=== PATIENT | male | born 1965 | race Two or more races ===

== ENCOUNTER → 2016-12-02 | Outpatient (CLI) | payer BC ==
[~2016-12-02] MED LIST: LISIPOW; METF-372 OR; SIMV-8 OR
[2016-12-02 08:13] LABS: Basophils # (auto) 0 uL; Basophils % (auto) 0.8 % (0.0-2.0); CONDITION AutoValidated; Eosinophils # (auto) 0.1 uL; Eosinophils % (auto) 2.8 % (0.0-7.0); Hematocrit 43.5 % (41.0-53.0); Hemoglobin 14.6 g/dL (13.5-17.5); Lymphocytes # (auto) 1.2 uL; Lymphocytes % (auto) 21.4 % (10.0-50.0); Mean Corpuscular Hemoglobin 30.9 pg (28.0-32.0); Mean Corpuscular Hgb Conc. 33.6 g/dL (32.0-36.0); Mean Platelet Volume 8.4 fL (7.4-10.4); Monocytes # (auto) 0.4 uL; Monocytes % (auto) 7.4 % (0.0-12.0); Neutrophils # (auto) 3.6 uL; Neutrophils % (auto) 67.6 % (37.0-80.0); Platelet Count (auto) 263 10^3/uL (140-450); Red Cell Distribution Width 13.9 % (11.6-16.0); White Blood Cell 5.4 10^3/uL (4.4-10.8)
[2016-12-02 08:21] LABS: Urine Bilirubin Negative (Negative); Urine Blood Negative /uL (Negative); Urine Color Yellow (Yellow); Urine Ketone Negative (Negative); Urine Nitrite Negative (Negative); Urine RBC <1 /hpf (0 - 3); Urine Squamous Epithelial Cell FEW /hpf (<5); Urine Urobilinogen Normal (Negative)
[2016-12-02 08:22] LABS: Urine Glucose 4+ mg/dL (Normal)
[2016-12-02 08:39] LABS: BUN/Creatinine Ratio 27.2; Bilirubin, Total 0.4 mg/dL (0.2-1.0); Potassium 4.1 mmol/L (3.5-5.1); Total Protein 7.1 g/dL (6.4-8.2)
== END | disposition home or self-care (01) ==
LOC: LAB 07:33
PROVIDERS: ATTEND Internal Medicine
DX: Z00.00 Encounter for general adult medical examination without abnormal findings (principal); I10 Essential (primary) hypertension; E11.22 Type 2 diabetes mellitus with diabetic chronic kidney disease
CPT/HCPCS: 36415; 80053; 80061; 81001; 82043; 83036; 85025

== ENCOUNTER → 2017-09-06 | Outpatient (CLI) | payer BC ==
[2017-09-06 08:28] LABS: Basophils # (auto) 0 uL; Basophils % (auto) 0.5 % (0.0-2.0); Eosinophils # (auto) 0.1 uL; Eosinophils % (auto) 1.8 % (0.0-7.0); Hematocrit 43.9 % (41.0-53.0); Hemoglobin 14.7 g/dL (13.5-17.5); Lymphocytes # (auto) 1.4 uL; Lymphocytes % (auto) 25.9 % (10.0-50.0); Mean Corpuscular Hemoglobin 31.5 pg (28.0-32.0); Mean Corpuscular Hgb Conc. 33.5 g/dL (32.0-36.0); Mean Corpuscular Volume 94.2 fL (80.0-100.0); Monocytes # (auto) 0.4 uL; Monocytes % (auto) 8.5 % (0.0-12.0); Neutrophils # (auto) 3.3 uL; Neutrophils % (auto) 63.3 % (37.0-80.0); Nucleated Red Blood Cells % 0.1 %; Platelet Count (auto) 215 10^3/uL (140-450); Red Blood Cells 4.66 10^6/uL (4.5-5.90); Red Cell Distribution Width 13.3 % (11.8-14.3); White Blood Cell 5.2 10^3/uL (4.4-10.8)
[2017-09-06 11:22] LABS: Prostate Specific Antigen 0.7 ng/mL (0.0-4.0)
[2017-09-06 12:46] LABS: Albumin 3.9 g/dL (3.4-5.0); BUN/Creatinine Ratio 30.1; Bilirubin, Total 0.4 mg/dL (0.2-1.0); Potassium 4.2 mmol/L (3.5-5.1); Total Protein 7.4 g/dL (6.4-8.2)
== END | disposition home or self-care (01) ==
LOC: LAB 07:16
PROVIDERS: ATTEND Internal Medicine
DX: E11.9 Type 2 diabetes mellitus without complications (principal); N40.0 Benign prostatic hyperplasia without lower urinary tract symptoms
CPT/HCPCS: 36415; 80053; 80061; 82607; 83036; 84153; 85025

== ENCOUNTER → 2018-08-23 | Outpatient (CLI) | payer BC ==
[2018-08-23 07:41] LABS: Basophils # (auto) 0 uL; Basophils % (auto) 0.7 % (0.0-2.0); Eosinophils # (auto) 0.1 uL; Eosinophils % (auto) 2.4 % (0.0-7.0); Hematocrit 43.7 % (41.0-53.0); Hemoglobin 14.5 g/dL (13.5-17.5); Lymphocytes # (auto) 1.3 uL; Lymphocytes % (auto) 26.2 % (10.0-50.0); Mean Corpuscular Hemoglobin 31.3 pg (28.0-32.0); Mean Corpuscular Hgb Conc. 33.2 g/dL (32.0-36.0); Mean Corpuscular Volume 94.3 fL (80.0-100.0); Monocytes # (auto) 0.5 uL; Monocytes % (auto) 9.6 % (0.0-12.0); Neutrophils # (auto) 3.1 uL; Neutrophils % (auto) 61.1 % (37.0-80.0); Platelet Count (auto) 211 10^3/uL (140-450); Red Blood Cells 4.63 10^6/uL (4.5-5.90); Red Cell Distribution Width 13.4 % (11.8-14.3); White Blood Cell 5.1 10^3/uL (4.4-10.8)
[2018-08-23 08:10] LABS: Albumin 3.7 g/dL (3.4-5.0); BUN/Creatinine Ratio 23.9; Potassium 4.1 mmol/L (3.5-5.1)
[2018-08-23 08:11] LABS: Urine Bacteria NONE SEEN /hpf (None Seen); Urine Blood Negative /uL (Negative); Urine Specific Gravity 1.031 (1.001-1.035); Urine WBC <1 /hpf (0 - 3)
[2018-08-23 08:16] LABS: Bilirubin, Total 0.3 mg/dL (0.2-1.0); Total Protein 7.3 g/dL (6.4-8.2)
[2018-08-23 08:50] LABS: Free T4 (Free Thyroxine) 1.07 ng/dL (0.89-1.76); Prostate Specific Antigen 0.65 ng/mL (0.0-4.0)
== END | disposition home or self-care (01) ==
LOC: LAB 07:26
PROVIDERS: ATTEND Internal Medicine
DX: E11.9 Type 2 diabetes mellitus without complications (principal)
CPT/HCPCS: 36415; 80053; 80061; 81001; 82043; 82607; 83036; 84153; 84439; 84443; 85025; 85652

== ENCOUNTER → 2019-03-21 | Outpatient (CLI) | payer BC | END | disposition home or self-care (01) | LOC: XY 09:20 | PROVIDERS: ATTEND Internal Medicine | DX: E11.9 Type 2 diabetes mellitus without complications (principal); I73.9 Peripheral vascular disease, unspecified | CPT/HCPCS: 93925 ==

== ENCOUNTER → 2019-03-21 | Outpatient (CLI) | payer BC ==
[2019-03-21 11:57] LABS: Potassium 3.9 mmol/L (3.5-5.1)
[2019-03-21 12:03] LABS: Albumin 3.7 g/dL (3.4-5.0); BUN/Creatinine Ratio 23.1; Bilirubin, Total 0.3 mg/dL (0.2-1.0); Calcium 8.5 mg/dL (8.5-10.1); Total Protein 7.2 g/dL (6.4-8.2)
== END | disposition home or self-care (01) ==
LOC: LAB 10:03
PROVIDERS: ATTEND Internal Medicine
DX: E11.9 Type 2 diabetes mellitus without complications (principal); E03.9 Hypothyroidism, unspecified
CPT/HCPCS: 36415; 80053; 82550; 83036; 84439; 84443

== ENCOUNTER → 2019-07-10 | Outpatient (CLI) | payer BC | END | disposition home or self-care (01) | LOC: LAB 05:44 | PROVIDERS: ATTEND Internal Medicine | DX: E11.9 Type 2 diabetes mellitus without complications (principal) | CPT/HCPCS: 36415; 83036 ==

== ENCOUNTER → 2020-10-02 | Outpatient (CLI) | payer BC ==
[2020-10-02 07:58] LABS: Urine Bacteria MOD /hpf (None Seen); Urine Blood Negative /uL (Negative); Urine Hyaline Cast FEW /lpf (0 - 2); Urine Mucus FEW (None Seen); Urine Sperm PRESENT /hpf (None Seen); Urine WBC 1 /hpf (0 - 3)
[2020-10-02 08:01] LABS: Basophils # (auto) 0 10 ^3/uL (0-0.2); Basophils % (auto) 0.3 % (0.0-2.0); Eosinophils # (auto) 0.1 10 ^3/uL (0-0.8); Eosinophils % (auto) 2.2 % (0.0-7.0); Hemoglobin 12.8 g/dL (13.5-17.5); Lymphocytes # (auto) 1.1 10 ^3/uL (0.4-5.4); Lymphocytes % (auto) 26.9 % (10.0-50.0); Mean Corpuscular Hemoglobin 30.2 pg (28.0-32.0); Mean Corpuscular Hgb Conc. 33.8 g/dL (32.0-36.0); Mean Corpuscular Volume 89.5 fL (80.0-100.0); Monocytes # (auto) 0.4 10 ^3/uL (0-1.3); Monocytes % (auto) 8.9 % (0.0-12.0); Neutrophils # (auto) 2.6 10 ^3/uL (1.6-8.6); Neutrophils % (auto) 61.7 % (37.0-80.0); Nucleated Red Blood Cells % 0.1 %; Platelet Count (auto) 224 10^3/uL (140-450); Red Blood Cells 4.25 10^6/uL (4.5-5.90); Red Cell Distribution Width 13.6 % (11.8-14.3); White Blood Cell 4.2 10^3/uL (4.4-10.8)
[2020-10-02 08:23] LABS: Albumin 3.6 g/dL (3.4-5.0); Calcium 8.8 mg/dL (8.5-10.1); Potassium 4.2 mmol/L (3.5-5.1)
[2020-10-02 08:27] LABS: Bilirubin, Total 0.4 mg/dL (0.2-1.0); Total Protein 6.8 g/dL (6.4-8.2)
[2020-10-02 09:42] LABS: Free T4 (Free Thyroxine) 0.84 ng/dL (0.89-1.76); Prostate Specific Antigen 0.85 ng/mL (0.0-4.0)
== END | disposition home or self-care (01) ==
LOC: LAB 07:07
PROVIDERS: ATTEND Internal Medicine
DX: E11.9 Type 2 diabetes mellitus without complications (principal); I10 Essential (primary) hypertension; N40.0 Benign prostatic hyperplasia without lower urinary tract symptoms; R14.3 Flatulence
CPT/HCPCS: 36415; 80053; 80061; 81001; 82043; 82150; 82607; 83036; 83690; 84153; 84439; 84443; 85025; 85652

== ENCOUNTER 2020-11-21 11:12 | Emergency (ER) | payer BC ==
[~2020-11-21] VITALS: Ht 162.6 cm; Wt 65.8 kg
[2020-11-21 11:48] LABS: Basophils # (auto) 0 10 ^3/uL (0-0.2); Basophils % (auto) 0.4 % (0.0-2.0); Eosinophils # (auto) 0.1 10 ^3/uL (0-0.8); Eosinophils % (auto) 0.9 % (0.0-7.0); Hematocrit 40.7 % (41.0-53.0); Hemoglobin 13.6 g/dL (13.5-17.5); Lymphocytes # (auto) 1.2 10 ^3/uL (0.4-5.4); Lymphocytes % (auto) 19.6 % (10.0-50.0); Mean Corpuscular Hemoglobin 30.4 pg (28.0-32.0); Mean Corpuscular Hgb Conc. 33.5 g/dL (32.0-36.0); Mean Corpuscular Volume 90.6 fL (80.0-100.0); Monocytes # (auto) 0.4 10 ^3/uL (0-1.3); Monocytes % (auto) 6.5 % (0.0-12.0); Neutrophils # (auto) 4.5 10 ^3/uL (1.6-8.6); Neutrophils % (auto) 72.6 % (37.0-80.0); Nucleated Red Blood Cells % 0.1 %; Platelet Count (auto) 226 10^3/uL (140-450); Red Blood Cells 4.49 10^6/uL (4.5-5.90); White Blood Cell 6.3 10^3/uL (4.4-10.8)
[2020-11-21 12:07] LABS: Albumin 3.9 g/dL (3.4-5.0); Anion Gap 7 (5-15); Blood Urea Nitrogen 24 mg/dL (7-18); Calcium 8.8 mg/dL (8.5-10.1); Carbon Dioxide 25 mmol/L (21-32); Chloride 104 mmol/L (98-107); Glucose 202 mg/dL (74-106); Potassium 4.2 mmol/L (3.5-5.1); Sodium 136 mmol/L (136-145)
[2020-11-21 12:18] LABS: Alanine Aminotransferase 30 U/L (16-61); Alkaline Phosphatase 89 U/L (45-117); Aspartate Aminotransferase 18 U/L (15-37); BUN/Creatinine Ratio 20.5; Bilirubin, Total 0.6 mg/dL (0.2-1.0); GFR African American 83 mL/min; GFR Non-African American 69 mL/min; Total Protein 7.2 g/dL (6.4-8.2)
[2020-11-21 14:54] LABS: Urine Bacteria NONE SEEN /hpf (None Seen); Urine Blood Negative /uL (Negative); Urine Specific Gravity 1.029 (1.001-1.035); Urine WBC 1 /hpf (0 - 3)
[2020-11-21 16:37] VITALS: BP 127/90
== END 2020-11-21 16:44 | disposition home or self-care (01) ==
LOC: ER 11:12
DX: R10.9 Unspecified abdominal pain (principal); E11.9 Type 2 diabetes mellitus without complications; Z79.899 Other long term (current) drug therapy
CPT/HCPCS: 36415; 74176; 80053; 81001; 84484; 85025; 93005

== ENCOUNTER → 2021-11-23 | Outpatient (CLI) | payer BC ==
[~2021-11-23] MED LIST changes: +ASPI-543 PO; +GLIP5TAB12 PO; +LISI-275 PO; -LISIPOW; +METF-371 PO; -METF-372 OR; +ROSU10TA16 PO; -SIMV-8 OR
[2021-11-23 11:48] LABS: Basophils # (auto) 0.1 10 ^3/uL (0-0.2); Basophils % (auto) 1.2 % (0.0-2.0); Eosinophils # (auto) 0 10 ^3/uL (0-0.8); Eosinophils % (auto) 0.3 % (0.0-7.0); Hemoglobin 12.1 g/dL (13.5-17.5); Lymphocytes # (auto) 0.8 10 ^3/uL (0.4-5.4); Lymphocytes % (auto) 15.3 % (10.0-50.0); Mean Corpuscular Hemoglobin 31.4 pg (28.0-32.0); Mean Corpuscular Hgb Conc. 33.7 g/dL (32.0-36.0); Mean Corpuscular Volume 93.1 fL (80.0-100.0); Monocytes # (auto) 0.4 10 ^3/uL (0-1.3); Monocytes % (auto) 7.7 % (0.0-12.0); Neutrophils # (auto) 3.7 10 ^3/uL (1.6-8.6); Neutrophils % (auto) 75.5 % (37.0-80.0); Nucleated Red Blood Cells % 0.1 %; Red Blood Cells 3.86 10^6/uL (4.5-5.90); Red Cell Distribution Width 13.6 % (11.8-14.3); White Blood Cell 4.9 10^3/uL (4.4-10.8)
[2021-11-23 12:03] LABS: INR 0.97 (0.9-1.15); Partial Thromboplastin Time 26.5 sec (23.6-33.0)
[2021-11-23 12:36] LABS: Albumin 3.4 g/dL (3.4-5.0); Calcium 8.7 mg/dL (8.5-10.1); Potassium 4.3 mmol/L (3.5-5.1)
[2021-11-23 12:42] LABS: BUN/Creatinine Ratio 21.9; Bilirubin, Total 0.4 mg/dL (0.2-1.0); Total Protein 6.6 g/dL (6.4-8.2)
== END | disposition home or self-care (01) ==
LOC: LAB 11:35
PROVIDERS: ATTEND Internal Medicine
DX: Z01.812 Encounter for preprocedural laboratory examination (principal); I10 Essential (primary) hypertension
CPT/HCPCS: 36415; 80053; 85025; 85610; 85730

== ENCOUNTER 2021-11-24 06:24 | Day surgery (SDC) | payer BC ==
[~2021-11-24] VITALS: Ht 162.6 cm; Wt 65.8 kg
[2021-11-24] MEDS ORDERED: LIDOCAINE 2%HCL (LOCAL ANESTH.) INJ 10ml MDV ONE ×2 (07:11→07:42)
[2021-11-24] MEDS ORDERED: IODIXANOL 320MG/ML 100ML BTL IV ONE (07:11)
[2021-11-24] MEDS ORDERED: SODIUM CHL 0.9% 0 ML ONE (09:47)
[2021-11-24] MEDS ORDERED: MIDAZOLAM HCL 2MG/2ML 2ml VIAL (1mg/ml) ONE (09:47)
[2021-11-24] MEDS ORDERED: fentaNYL CITRATE 100 MCG/2 ML VL ONE (09:47)
[2021-11-24] MEDS ORDERED: ANGIOMAX 250 MG VIAL IV ONE (09:47)
== END 2021-11-24 12:30 | disposition home or self-care (01) ==
LOC: CATH 06:24
PROVIDERS: ATTEND Internal Medicine
DX: I73.9 Peripheral vascular disease, unspecified (principal); Z20.822 Contact with and (suspected) exposure to COVID-19
CPT/HCPCS: 36245; 75710; C1760; C1887; C1894; J1644; J2001; J2250; J3010; Q9967; U0003; 99152

== ENCOUNTER → 2023-08-11 | Outpatient (CLI) | payer OTHER ==
[2023-08-11 07:20] LABS: Basophils # (auto) 0 10 ^3/uL (0-0.2); Eosinophils # (auto) 0.1 10 ^3/uL (0-0.8); Hemoglobin 11.2 g/dL (13.5-17.5); Lymphocytes # (auto) 0.8 10 ^3/uL (0.4-5.4); Mean Corpuscular Hemoglobin 25.9 pg (28.0-32.0); Monocytes # (auto) 0.3 10 ^3/uL (0-1.3); Neutrophils # (auto) 2.2 10 ^3/uL (1.6-8.6); White Blood Cell 3.4 10^3/uL (4.4-10.8)
[2023-08-11 07:24] LABS: Basophils % (auto) 0.7 % (0.0-2.0); Eosinophils % (auto) 2.2 % (0.0-7.0); Lymphocytes % (auto) 24.4 % (10.0-50.0); Mean Corpuscular Hgb Conc. 32.1 g/dL (32.0-36.0); Mean Corpuscular Volume 80.8 fL (80.0-100.0); Monocytes % (auto) 8.9 % (0.0-12.0); Neutrophils % (auto) 63.8 % (37.0-80.0); Red Blood Cells 4.33 10^6/uL (4.5-5.90); Red Cell Distribution Width 15.9 % (11.8-14.3)
[2023-08-11 07:35] LABS: Urine Bacteria NONE SEEN /hpf (None Seen); Urine Blood Negative /uL (Negative); Urine Clarity Clear (Clear); Urine Color Yellow (Yellow); Urine Mucus FEW (None Seen); Urine Protein, UAD Negative (Negative); Urine Specific Gravity 1.021 (1.001-1.035); Urine Urobilinogen Normal (Negative); Urine WBC 1 /hpf (0 - 3)
[2023-08-11 08:02] LABS: Alkaline Phosphatase 76 U/L (46-116); Anion Gap 6 (5-15); Aspartate Aminotransferase 20 U/L (13-40); BUN/Creatinine Ratio 15.7 (10.0-20.0); Blood Urea Nitrogen 16 mg/dL (9-23); Calcium 9.5 mg/dL (8.5-10.1); Carbon Dioxide 28 mmol/L (20-30); Chloride 104 mmol/L (98-107); Creatinine, Urine 108.81 mg/dL (30.0-125.0); Glucose 136 mg/dL (74-106); Potassium 4.7 mmol/L (3.5-5.1); Sodium 138 mmol/L (136-145); Triglycerides 51 mg/dL (< 150)
[2023-08-11 08:03] LABS: Alanine Aminotransferase 18 U/L (7-40); Albumin 4.4 g/dL (3.2-4.8); LDL Cholesterol 96 mg/dL (< 100)
[2023-08-11 08:04] LABS: Bilirubin, Total 0.4 mg/dL (0.2-1.0); Cholesterol 159 mg/dL (< 200); HDL Cholesterol 55 mg/dL (40-59); Thyroid Stimulating Hormone 3.78 uIU/mL (0.55-4.78)
[2023-08-11 08:05] LABS: Total Protein 7.1 g/dL (5.7-8.2)
[2023-08-11 08:36] LABS: Erythrocyte Sedimentation Rate 18 mm/hr (0-20)
[2023-08-11 08:37] LABS: Prostate Specific Antigen 0.87 ng/mL (0.0-4.0)
[2023-08-11 08:41] LABS: Free T4 (Free Thyroxine) 1.09 ng/dL (0.89-1.76)
[2023-08-12 11:06] LABS: Hepatitis B Core Total Antibod Negative (Negative)
[2023-08-12 13:06] LABS: Complement C3 116 mg/dL (82-167)
== END | disposition home or self-care (01) ==
LOC: LAB 06:31
PROVIDERS: ATTEND Internal Medicine
DX: E11.9 Type 2 diabetes mellitus without complications (principal); J67.9 Hypersensitivity pneumonitis due to unspecified organic dust; L30.9 Dermatitis, unspecified
CPT/HCPCS: 36415; 80053; 80061; 81001; 82043; 82570; 82607; 82785; 83036; 83615; 84153; 84439; 84443; 85025; 85652; 86160; 86705; 86706; 86803; 87340

== ENCOUNTER 2024-01-20 11:11 | Inpatient (IN) | payer OTHER ==
[~2024-01-20] VITALS: Ht 162.6 cm; Wt 68.7 kg
[~2024-01-20 11:11] MED LIST changes: -GLIP5TAB12 PO; +GLIP5TAB21 PO
[2024-01-20 12:16] LABS: Basophils # (auto) 0 10 ^3/uL (0-0.2); Eosinophils # (auto) 0 10 ^3/uL (0-0.8); Lymphocytes # (auto) 1.2 10 ^3/uL (0.4-5.4); Mean Corpuscular Volume 78.8 fL (80.0-100.0); Monocytes # (auto) 0.4 10 ^3/uL (0-1.3); Red Cell Distribution Width 18.1 % (11.8-14.3)
[2024-01-20 12:18] LABS: Basophils % (auto) 0.5 % (0.0-2.0); Eosinophils % (auto) 0.8 % (0.0-7.0); Hematocrit 32.4 % (41.0-53.0); Hemoglobin 10.5 g/dL (13.5-17.5); Lymphocytes % (auto) 24.8 % (10.0-50.0); Mean Corpuscular Hemoglobin 25.5 pg (28.0-32.0); Mean Corpuscular Hgb Conc. 32.3 g/dL (32.0-36.0); Monocytes % (auto) 9.2 % (0.0-12.0); Neutrophils # (auto) 3.1 10 ^3/uL (1.6-8.6); Neutrophils % (auto) 64.7 % (37.0-80.0); Red Blood Cells 4.11 10^6/uL (4.5-5.90); White Blood Cell 4.8 10^3/uL (4.4-10.8)
[2024-01-20 12:20] LABS: Chloride 100 mmol/L (98-107); Potassium 4.7 mmol/L (3.5-5.1)
[2024-01-20 12:21] LABS: Sodium 132 mmol/L (136-145)
[2024-01-20 12:22] LABS: Anion Gap 6 (5-15); Calcium 9.4 mg/dL (8.7-10.4); Carbon Dioxide 26 mmol/L (20-30)
[2024-01-20 12:27] LABS: BUN/Creatinine Ratio 20.9 (10.0-20.0); Blood Urea Nitrogen 23 mg/dL (9-23)
[2024-01-20 12:34] LABS: Glucose 425 mg/dL (74-106)
[2024-01-20 12:44] LABS: Urine Bacteria None Seen /hpf (None Seen); Urine WBC None Seen /hpf (0 - 3)
[2024-01-20] MEDS: SODIUM CHLORIDE 0.9% 1,000 ML IV ONE ×2 (12:56→15:41)
[2024-01-20 13:38] LABS: Urine Blood Negative /uL (Negative); Urine Clarity Clear (Clear); Urine Color Light-Yellow (Yellow); Urine Protein, UAD Negative (Negative); Urine Specific Gravity 1.027 (1.001-1.035); Urine Urobilinogen Normal (Negative)
[2024-01-20 15:42] VITALS: PULSE 81; RESP 18; O2SAT 100
[2024-01-20] MEDS ORDERED: DEXTROSE (50%) 50ML SYRG IV PRN ×2 (16:30)
[2024-01-20] MEDS ORDERED: MECLIZINE HCL 25 MG TAB PO PRN (16:30)
[2024-01-20] MEDS ORDERED: NITROGLYCERIN 0.4 MG SL TAB SL PRN (16:30)
[2024-01-20] MEDS: SODIUM CHLORIDE 0.9% 1,000 ML IV SCH (16:46)
[2024-01-20] MEDS ORDERED: ACCU-CHEK COMFORT CURVE STRIP VI SCH (17:00)
[2024-01-20] MEDS ORDERED: InsuLIN REG 1unit/0.01ml Soln (100units/ml) SC SCH ×2 (17:00→22:00)
[2024-01-20 17:07] LABS: Magnesium 1.7 mg/dL (1.6-2.6)
[2024-01-20 17:08] LABS: Phosphorus 2.9 mg/dL (2.4-5.1)
[2024-01-20] MEDS: LISINOPRIL 5 MG TAB PO SCH (17:21)
[2024-01-20] MEDS: MECLIZINE HCL 25 MG TAB PO ONE (17:21)
[2024-01-20 17:44] LABS: Erythrocyte Sedimentation Rate 13 mm/hr (0-20)
[2024-01-20] MEDS: ACCU-CHEK COMFORT CURVE STRIP VI SCH (18:14)
[2024-01-20] MEDS: InsuLIN REG 1unit/0.01ml Soln (100units/ml) SC SCH (18:15)
[2024-01-20 23:00] VITALS: BP 141/54; PULSE 76; RESP 19; TEMP 97.9; O2SAT 97
[2024-01-20] MEDS ORDERED: ROSU5TAB24 PO (23:43)
[2024-01-20] MEDS ORDERED: PIOG1TAB37 (23:43)
[2024-01-20 23:53] VITALS: PULSE 81; RESP 18
[2024-01-20] MEDS ORDERED: CLOP75TA70 (23:53)
[2024-01-20 23:54] VITALS: BP 114/54; PULSE 76; RESP 20; TEMP 97.9; O2SAT 97
[2024-01-21] MEDS: ATORVASTATIN 20 MG TAB PO SCH (00:15)
[2024-01-21 01:00] VITALS: BP 153/63; PULSE 91; RESP 18; TEMP 97.8; O2SAT 97
[2024-01-21 04:59] VITALS: BP 129/44; PULSE 64; RESP 19; TEMP 97.8; O2SAT 97
[2024-01-21 08:00] VITALS: PULSE 56; PULSE 71; RESP 18; O2SAT 98
[2024-01-21 09:05] VITALS: BP 123/47; PULSE 71; RESP 18; TEMP 98.1; O2SAT 98
[2024-01-21] MEDS: ASPirin 81 mg TAB PO SCH (09:07)
[2024-01-21 13:00] VITALS: BP 139/59; PULSE 66; RESP 17; TEMP 98.2; O2SAT 97
[2024-01-21 14:48] VITALS: BP 123/47; TEMP 36.8
== END 2024-01-21 15:25 | disposition home or self-care (01) | DRG 638 ==
LOC: ER 11:11 → TELE 16:33 → TELE-E-ADS 23:15
PROVIDERS: ADMIT Nurse Practitioner Family; ATTEND Nurse Practitioner Family
DX: E11.65 Type 2 diabetes mellitus with hyperglycemia (principal); E87.1 Hypo-osmolality and hyponatremia; G45.9 Transient cerebral ischemic attack, unspecified; E11.51 Type 2 diabetes mellitus with diabetic peripheral angiopathy without gangrene; D64.9 Anemia, unspecified; I10 Essential (primary) hypertension; E78.5 Hyperlipidemia, unspecified; Z79.82 Long term (current) use of aspirin; Z79.899 Other long term (current) drug therapy; Z83.3 Family history of diabetes mellitus; Z82.49 Family history of ischemic heart disease and other diseases of the circulatory system; Z79.02 Long term (current) use of antithrombotics/antiplatelets
CPT/HCPCS: 36415; 70450; 71046; 80048; 80061; 81001; 82010; 82962; 83036; 83735; 84100; 84443; 84484; 85025; 85652; 86592; 93005; 93306; 93886; 96360; 96361; 97163; G0378; J1815

== ENCOUNTER 2025-01-27 06:40 | Outpatient (CLI) | payer OTHER ==
[~2025-01-27 06:40] MED LIST changes: +CLOP75TA70; +PIOG1TAB37; -ROSU10TA16 PO; +ROSU5TAB24 PO
[2025-01-27 07:12] LABS: Hemoglobin 10.6 g/dL (13.5-17.5); Nucleated Red Blood Cells % 0.0 %
[2025-01-27 07:14] LABS: Hematocrit 32.7 % (41.0-53.0); Mean Corpuscular Hemoglobin 25.6 pg (28.0-32.0); Mean Corpuscular Volume 78.8 fL (80.0-100.0)
[2025-01-27 07:23] LABS: Urine Protein, UAD TRACE (Negative)
[2025-01-27 08:05] LABS: Alanine Aminotransferase 14 U/L (7-40); Alkaline Phosphatase 71 U/L (46-116); Anion Gap 9 (5-15); BUN/Creatinine Ratio 18.7 (10.0-20.0); Blood Urea Nitrogen 20 mg/dL (9-23); Calcium 9.3 mg/dL (8.7-10.4); Carbon Dioxide 27 mmol/L (20-31); Chloride 103 mmol/L (98-107); Potassium 4.5 mmol/L (3.5-5.1); Sodium 139 mmol/L (136-145); Triglycerides 86 mg/dL (< 150)
[2025-01-27 08:06] LABS: Total Protein 6.6 g/dL (5.7-8.2)
[2025-01-27 08:07] LABS: Albumin 4.4 g/dL (3.2-4.8); Bilirubin, Total 0.3 mg/dL (0.2-1.0); Cholesterol 145 mg/dL (< 200); HDL Cholesterol 48 mg/dL (40-59)
[2025-01-27 08:08] LABS: Glucose 140 mg/dL (74-106)
[2025-01-27 08:09] LABS: Microalb/Creat Ratio, Urine 4.0
[2025-01-27 10:22] LABS: Free T4 (Free Thyroxine) 0.89 ng/dL (0.89-1.76)
== END 2025-01-27 17:00 | disposition home or self-care (01) ==
LOC: LAB 06:40
PROVIDERS: ATTEND Internal Medicine
DX: I10 Essential (primary) hypertension (principal); E11.9 Type 2 diabetes mellitus without complications
CPT/HCPCS: 36415; 80053; 80061; 81001; 82043; 82570; 82607; 83036; 84439; 84443; 85025; 85652

== ENCOUNTER → 2025-02-21 | Outpatient (CLI) | payer OTHER | END | disposition home or self-care (01) | LOC: LAB 07:46 | PROVIDERS: ATTEND Internal Medicine | DX: D64.9 Anemia, unspecified (principal) | CPT/HCPCS: 82270 ==